=== PATIENT | female | born 1930 | race Caucasian/White ===

== ENCOUNTER 2016-12-13 08:17 | Emergency (ER) | payer MEDICARE, OTHER ==
--- NOTE | ~2016-12-13 | CR173 ---
[facility] A Service of [facility] & [facility] RADIOLOGY TEXT RESULTS PATIENT: GEORGETTE PROCTOR LOCATION: [facility] : 31 UNIT #: [id number] AGE: [address]: LOUIS MARCOS SEX: F ORDER DR: [id number] [facility] [address] [place], [place] [address] [id number] E MR#: [id number] Acc #: [id number] NAME: GEORGETTE PROCTOR : 1930 SEX: F STUDY DATE/TIME: 12/13/2016 9:41 UNIT: [facility] ROOM: STUDY DESCRIPTION: CR Knee 3 Views Rt Attending Physician: Louis Marcos Aprn Ordering Physician: Ed Ritchie Lopez M.D. Primary Care Physician: Rivera Labmert M.D. MEDICAL IMAGING REPORT This report is preliminary unless electronic signature is present EXAM 3 views of the right knee INDICATIONS Pain in both knees after a fall today. FINDINGS No acute fracture or subluxation of the right knee is identified. There is no suprapatellar views and patient does have degenerative changes involving the knee which are actually fairly mild in a tricompartmental distribution. There is dense atherosclerotic involvement of the superficial femoral and popliteal arteries. No aggressive osseous abnormalities are seen IMPRESSION No acute fracture or subluxation of the right knee is identified. Dictated by... Neha Patel M.D. THIS IS AN ELECTRONICALLY VERIFIED REPORT Neha Patel M.D. at 12/14/2016 1:24 PM AFF/rnr TD: 12/13/2016 22:21 JOB #: [id number] MEDICAL IMAGING REPORT COPY
--- NOTE | ~2016-12-13 | CR172 ---
[facility] A Service of [facility] & [facility] RADIOLOGY TEXT RESULTS PATIENT: GEORGETTE PROCTOR LOCATION: [facility] : 31 UNIT #: [id number] AGE: [address]: LOUIS MARCOS SEX: F ORDER DR: [id number] [facility] [address] [place], [place] [address] [id number] E MR#: [id number] Acc #: [id number] NAME: GEORGETTE PROCTOR : 1930 SEX: F STUDY DATE/TIME: 12/13/2016 9:38 UNIT: [facility] ROOM: STUDY DESCRIPTION: CR Knee 3 Views Lt Attending Physician: Louis Marcos Aprn Ordering Physician: Ed Ritchie Lopez M.D. Primary Care Physician: Rivera Lambert M.D. MEDICAL IMAGING REPORT This report is preliminary unless electronic signature is present EXAM 3 views left knee INDICATIONS Left knee pain after a fall today. FINDINGS No acute fracture or subluxation of the left knee is identified. Patient has really minimal degenerative change in the left knee, there is dense atherosclerotic involvement of the arterial vasculature. No suprapatellar effusion is identified. IMPRESSION No acute fracture or subluxation identified. Dictated by... Neha Patel M.D. THIS IS AN ELECTRONICALLY VERIFIED REPORT Neha Patel M.D. at 12/14/2016 1:30 PM AFF/rnr TD: 12/13/2016 22:44 JOB #: [id number] MEDICAL IMAGING REPORT COPY
--- NOTE | ~2016-12-13 | CT52 ---
[facility] A Service of [facility] & [facility] RADIOLOGY TEXT RESULTS PATIENT: GEORGETTE PROCTOR LOCATION: [facility] : 31 UNIT #: [id number] AGE: [address]: LOUIS MARCOS SEX: F ORDER DR: [id number] [facility] [address] [place], [place] [address] [id number] E MR#: [id number] Acc #: [id number] NAME: GEORGETTE PROCTOR : 1930 SEX: F STUDY DATE/TIME: 12/13/2016 9:21 UNIT: [place] ROOM: STUDY DESCRIPTION: CT Cervical Spine Wo Cont Attending Physician: Louis Marcos Aprn Ordering Physician: Ed Doctor [id number] [facility] Primary Care Physician: Rivera Lambert M.D. MEDICAL IMAGING REPORT This report is preliminary unless electronic signature is present EXAM Cervical spine CT without contrast HISTORY Neck pain, fell. Hip pain, fell today with 01/[address] exam was performed with one or more of the following radiation dose reduction techniques: automatic exposure control, adjustment of mA and/or kV according to patient size, and iterative reconstruction. COMMENT CT of the cervical spine performed in the axial plane without contrast followed by sagittal and coronal reconstructed images. 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 Non-emergent passive flexion/extension views could be obtained to assess for motion. There is about 2.0 mm of degenerative anterolisthesis of C4 on C5, also chronic. None of these is consistent with acute injury. There is endplate spondylosis most severe anteriorly at C5-6 and C6-7 with loss of intervertebral disc height at each of these levels. Arthritis is also prominent at the anterior atlantoaxial joint. No acute fracture or traumatic malalignment is suspected. No prevertebral fluid collection is suspected. Atherosclerotic vascular calcifications prominent at carotid bifurcations, best pursued with non-emergent carotid Doppler ultrasound. C2-3 bilateral facet degenerative change and bony foraminal narrowing but no apparent canal compromise. C3-4, severe bilateral facet degenerative change, bilateral bony foraminal narrowing. No bony canal compromise. [facility] A Service of [facility] & [facility] RADIOLOGY TEXT RESULTS PATIENT: GEORGETTE PROCTOR LOCATION: [facility] : 31 UNIT #: [id number] AGE: [address]: LOUIS MARCOS SEX: F ORDER DR: C4-5, facet degenerative change, left greater than right. Endplate spondylosis and uncovertebral osteophyte formation with bony foraminal narrowing, left greater than right. No bony canal stenosis. C5-6, endplate spondylosis. Mild bony foraminal narrowing. No bony canal compromise. C6-7, endplate spondylosis, uncovertebral osteophyte formation on the left with left-side bony foraminal narrowing. No bony canal compromise. C7-T1, asymmetric fairly severe left-sided bony foraminal narrowing with left-sided uncovertebral osteophyte formation and facet degenerative change. No bony canal compromise. IMPRESSION 1. There is redemonstration of cervical degenerative disease but there is nothing to suggest acute appearing cervical spine fracture or traumatic malalignment. Degenerative anterolisthesis of C3 on C4 and to a lesser extent C4 on C5 again identified. Multilevel bony foraminal narrowing noted. 2. Atherosclerotic vascular calcifications at the carotid bifurcations, best characterized with a non-emergent carotid Doppler ultrasound. STAT * RESULT Dictated by... Renetta Jones M.D. THIS IS AN ELECTRONICALLY VERIFIED REPORT Renetta Jones M.D. at 12/13/2016 4:03 PM [place]/jennifer TD: 12/13/2016 10:12 JOB #: [id number] MEDICAL IMAGING REPORT COPY
--- NOTE | ~2016-12-13 | CT71 ---
[facility] A Service of [facility] & [facility] RADIOLOGY TEXT RESULTS PATIENT: GEORGETTE PROCTOR LOCATION: [facility] : 31 UNIT #: [id number] AGE: [address]: LOUIS MARCOS SEX: F ORDER DR: [id number] [facility] [address] [place], [place] [address] [id number] E MR#: [id number] Acc #: [id number] NAME: GEORGETTE PROCTOR : 1930 SEX: F STUDY DATE/TIME: 12/13/2016 9:19 UNIT: [place] ROOM: STUDY DESCRIPTION: CT Head Wo Contrast Attending Physician: Louis Marcos Aprn Ordering Physician: North Lopez M.D. Primary Care Physician: Rivera Lambert M.D. MEDICAL IMAGING REPORT This report is preliminary unless electronic signature is present EXAM Head CT without HISTORY Fell, hip pain, fell today, irregular heartbeat, hypertension, diabetic, TIA. VRE history breast cancer. TECHNIQUE This CT exam was performed with one or more of the following radiation dose reduction techniques: automatic control, adjustment of mA and/or kV according to patient size, and iterative reconstruction. COMMENTS Routine noncontrast head CT is reviewed. Comparison 05/14/2015. There is no displaced calvarial fracture. The visualized mastoid air cells are clear. The patient has chronic sinus disease with mucosal thickening mucous retention cyst or polyps and some chronic osteitis changes in the maxillary sinuses. There is mucosal disease in the ethmoid air cells with some partial opacification on the left but there is no sinus air-fluid level. Vascular calcifications are quite prominent at the base of the brain. There is a large encephalomalacic area communicating with the ventricular system right parietooccipital lobe with evidence of extensive chronic insults to the brain. Also a large area of encephalomalacia in the right frontal lobe more superior. There is no evidence for acute intracranial hemorrhage or extraaxial fluid collection. Preexisting white matter disease noted. Old insult to the right basal ganglia and thalami. Again identified unchanged. Generalized atrophy. Patient has had cataract surgery bilaterally. IMPRESSION 1. No acute intracranial abnormality suspected but if there is clinical concern for acute CVA followup imaging is recommended. [facility] A Service of [facility] & [facility] RADIOLOGY TEXT RESULTS PATIENT: GEORGETTE PROCTOR LOCATION: [facility] : 31 UNIT #: [id number] AGE: [address]: LOUIS MARCOS SEX: F ORDER DR: 2. Atrophy. Extensive probable sequelae of small vessel disease and old areas of malacia with a large malacic cavity right parietooccipital lobe communicating with the ventricular system. Smaller area of encephalomalacia more superior right frontal lobe. These are unchanged and consistent with some chronic insult. Atherosclerotic vascular calcifications are quite prominent at the base of the brain. There is some paranasal sinus disease but there is no air-fluid level. Dictated by... Renetta Jones M.D. THIS IS AN ELECTRONICALLY VERIFIED REPORT Renetta Jones M.D. at 12/14/2016 6:19 AM [place]/gaby TD: 12/13/2016 22:14 JOB #: [id number] MEDICAL IMAGING REPORT COPY
--- NOTE | ~2016-12-13 | CT122 ---
[facility] A Service of [facility] & [facility] RADIOLOGY TEXT RESULTS PATIENT: GEORGETTE PROCTOR LOCATION: [facility] : 31 UNIT #: [id number] AGE: [address]: LOUIS MARCOS SEX: F ORDER DR: [id number] [facility] [address] [place], [place] [address] [id number] E MR#: [id number] Acc #: [id number] NAME: GEORGETTE PROCTOR : 1930 SEX: F STUDY DATE/TIME: 12/13/2016 11:45 UNIT: [place] ROOM: STUDY DESCRIPTION: CT Thoracic Spine Wo Cont Attending Physician: Louis Marcos Aprn Ordering Physician: Ed Doctor [id number] [facility] Primary Care Physician: Rivera Lambert M.D. MEDICAL IMAGING REPORT This report is preliminary unless electronic signature is present EXAM Thoracic spine CT INDICATION Patient fell today, mid-back pain. History of mastectomy. History of compression fractures. TECHNIQUE This CT exam was performed with one or more of the following radiation dose reduction techniques: automatic exposure control, adjustment of mA and/or kV according to patient size, and iterative reconstruction. COMMENT CT of the thoracic spine was performed without contrast in the axial plane followed by sagittal and coronal reconstructed images. There is comparison study from 05/14/2015. There is acute kyphosis centered at the level of T11 with severe chronic compression fractures at T10 and T12. The T12 compression fracture has been treated with a kyphoplasty. Moderate chronic compression fracture at T11. These findings are not appreciably changed from 05/14/2015. There is some bony canal compromise associated with it but not changed. There is however new abnormality at T8. There is a mild compression deformity with some indistinct sclerosis in the T8 vertebral body. I suspect this is all related to new compression fracture. Underlying lesion not excluded. There is minimal posterior cortical buckling but no bony canal stenosis is appreciated at the level of this more recent appearing T8 fracture. Clinical correlation and followup is recommended. Multilevel costovertebral joint arthritis present. There is consolidation in the right lower lobe posteriorly adjacent to a small to moderate pleural effusion. There is patchy airspace disease dependently on the left. Areas of parenchymal scarring in the apices. Considerable coronary artery calcifications. Calcifications of the thoracic aorta. Gallstones in the STS. [facility] A Service of [facility] RADIOLOGY TEXT RESULTS PATIENT: GEORGETTE PROCTOR LOCATION: [facility] : 31 UNIT #: [id number] AGE: [address]: LOUIS MARCOS SEX: F ORDER DR: gallbladder partly seen. Probably renovascular calcifications rather than renal calculi. IMPRESSION 1. Interval development of a mild anterior compression fracture at T8 on comparison to a scan from 05/14/2015. I suspect it is related to trauma and osteopenia in light of the history provided. Please correlate further clinically and followup is recommended to ensure healing and to exclude underlying lesion. Redemonstrated are old severe compression fractures at T10 and T12 and moderate chronic compression fracture at T11. The T12 fracture was previously treated with kyphoplasty cement. This is associated acute kyphosis and some bony canal stenosis but these are chronic findings, unchanged from 05/14/2015. 2. Partly seen is dependent right pleural effusion, small to moderate with airspace disease. Extensive vascular calcifications noted including the coronary arteries. STAT * RESULT Dictated by... Renetta Jones M.D. THIS IS AN ELECTRONICALLY VERIFIED REPORT Renetta Jones M.D. at 12/13/2016 4:03 PM Libert[place] TD: 12/13/2016 12:46 JOB #: [id number] MEDICAL IMAGING REPORT COPY
--- NOTE | ~2016-12-13 | CR243 ---
[facility] A Service of [facility] & [facility] RADIOLOGY TEXT RESULTS PATIENT: GEORGETTE PROCTOR LOCATION: [facility] : 31 UNIT #: [id number] AGE: [address]: LOUIS MARCOS SEX: F ORDER DR: [id number] [facility] [address] [place], [place] [address] [id number] E MR#: [id number] Acc #: [id number] NAME: GEORGETTE PROCTOR : 1930 SEX: F STUDY DATE/TIME: 12/13/2016 9:29 UNIT: [facility] ROOM: STUDY DESCRIPTION: CR Thoracic Spine 3 Views Attending Physician: Louis Marcos Aprn Ordering Physician: Ed Ritchie Lopez M.D. Primary Care Physician: Rivera Lambert M.D. MEDICAL IMAGING REPORT This report is preliminary unless electronic signature is present EXAM 4 views thoracic spine INDICATIONS Back pain after a fall today. FINDINGS This examination is nondiagnostic due to patient's osteoporosis and patient positioning. There is evidence of prior vertebroplasty at what is probably T12 and L2. Dense atherosclerotic involvement of the thoracic aorta is noted. IMPRESSION Nondiagnostic study due to patient's positioning. Osteopenia and advanced degenerative changes further evaluation with a CT is recommended. Dictated by... Neha Patel M.D. THIS IS AN ELECTRONICALLY VERIFIED REPORT Neha Patel M.D. at 12/14/2016 1:24 PM AFF/rnr TD: 12/13/2016 22:20 JOB #: [id number] MEDICAL IMAGING REPORT COPY
--- NOTE | ~2016-12-13 | CR229 ---
[facility] A Service of [facility] & [facility] RADIOLOGY TEXT RESULTS PATIENT: GEORGETTE PROCTOR LOCATION: [facility] : 31 UNIT #: [id number] AGE: [address]: LOUIS MARCOS SEX: F ORDER DR: [id number] [facility] [address] [place], [place] [address] [id number] E MR#: [id number] Acc #: [id number] NAME: GEORGETTE PROCTOR : 1930 SEX: F STUDY DATE/TIME: 12/13/2016 9:25 UNIT: [facility] ROOM: STUDY DESCRIPTION: CR Shoulder Min 2 View Lt Attending Physician: Louis Marcos Aprn Referring Physician: Quinton Sharpe M.D. Ordering Physician: North Lopez M.D. Primary Care Physician: Rivera Lambert M.D. MEDICAL IMAGING REPORT This report is preliminary unless electronic signature is present EXAM 3 views of left shoulder. DATE OF EXAM 12/13/2016 INDICATION Pain in the left shoulder, started today. Patient fell today. She is unable to rotate her arm externally. FINDINGS This examination is degraded by this patient's osteoporosis. However, no acute fracture or subluxation of the left shoulder is identified. The patient does appear to have some fractures of the left 5th and 6th ribs which I suspect are actually old, but are difficult to fully assess on these views of the shoulder. There are degenerative changes involving the left shoulder and left AC joint. No focal soft tissue abnormalities are seen. IMPRESSION Left 5th and 6th rib fractures favored to be old, certainly, however, dedicated rib series would be more sensitive for evaluation. No acute fracture or subluxation of the left shoulder, however, is seen. Dictated by... Neha Ptael M.D. THIS IS AN ELECTRONICALLY VERIFIED REPORT Neha Patel M.D. at 12/14/2016 1:24 PM AFF/jt TD: 12/13/2016 22:49 [facility] A Service of [facility] & [facility] RADIOLOGY TEXT RESULTS PATIENT: GEORGETTE PROCTOR LOCATION: [facility] #: [id number] : 31 UNIT #: [id number] AGE: [address]: LOUIS MARCOS SEX: F ORDER DR: JACQUELINE #: [id number] MEDICAL IMAGING REPORT COPY
[~2016-12-13 08:17] MED LIST: ACETAMINOPHEN PO; ACTONEL PO; ACTOS PO; AGGRENOX PO; ALENDRONATE SOD70 MG PO; AMARYL PO; AMBIEN CR PO; ANIMAL SHAPES1 EAC2 PO; ANTI-DIARRHEAL2 M1 PO; ANTIDIARRHEAL2 MG PO; ARNUITY ELLIP100 MCG IH; ARTHRITIS PAIN650 M3 PO; ASPIRIN PO; ASPIRIN81 M2 PO; ASPIRIN81 MG PO; ATORVASTATIN CA10 MG; ATORVASTATIN CA10 MG PO; CALCIMAR200 IU/ML; CARVEDILOL PO; CATAPRES0.1 MG PO; CENTRUM SILVER PO; CIPRO PO; CLOPIDOGREL75 MG; CLOPIDOGREL75 MG PO; COMBIVENT MININEB INH; COREG CR10 M1 PO; COREG PO; COREG6.25 M1 PO; COREG6.25 MG PO; COZAAR PO; COZAAR25 MG PO; CRANBERRY500 M1 PO; CRESTOR5 MG PO; DITROPAN XL PO; DITROPAN5 MG PO; DOCUSATE SODIU100 MG PO; DULCOLAX10 MG/SUPP PR; EFFEXOR XR75 MG PO; FERRO-TIME325 MG PO; FERROUS SULFATE1 TAB; FIORICET 50-321 EACH PO; FISH OIL 1,0001 CAP PO; FISH OIL 1,001000 M1 PO; FLOVENT DI50 MCG/DIS INH; FUROSEMIDE40 MG; FUROSEMIDE40 MG PO; FUROSEMIDE80 MG PO; GLUCOPHAGE XR500 MG PO; GLUCOPHAGE850 MG PO; GUAICON DMS LIQ10 M1 PO; IMDUR; IMDUR-ER30 M3 PO; IMDUR30 MG PO; IPRAT-ALBUT 0.5-3 ML IH; LANTUS100 U/M1 SQ; LANTUS100 U/ML; LANTUS100 U/ML SUBQ; LASIX PO; LASIX80 MG PO; LEVEMIR FL100 UNIT/1 SUBQ; LOSARTAN POTASS50 MG; LOSARTAN POTASS50 MG PO; LOW DOSE ASPIRI81 M1 PO; MACROBID100 MG PO; MAG-OXIDE400 MG PO; METFORMIN HCL500 M1; MILK OF MAGNESIA PO; MIRALAX17 GM PO; MULTI-VITAMIN1 EAC1 PO; NIFEREX-150 CAP1 CAP PO; NITROGLYGERIN0.4 MG SL; NITROSTAT0.4 MG SL; NORCO 5/325 TAB1 TAB PO; NOVOLOG100 U/M1; NOVOLOG100 U/ML; OMEGA 3-6-9 11200 M1 PO; OMEPRAZOLE20 M1 PO; OMNICEF300 MG PO; OYSTER CALCIUM500 MG PO; PLAVIX PO; POTASSIUM CHLO10 MEQ PO; PRILOSEC40 MG PO; SERTRALINE HCL50 MG; TOUJEO SOL300 UNIT/1 SUBQ; TOVIAZ4 MG; TOVIAZ4 MG PO; TRADJENTA5 MG PO; TUSSIN100 MG/51 PO; TYLENOL #3 PO; TYLENOL325 M1 PO; VENLAFAXINE HCL25 MG PO; VOLTAREN75 MG PO; VYTORIN PO; ZOLOFT PO; [UNRECOGNIZED DRUG - OTHER] MM
== END 2016-12-13 15:30 | disposition home or self-care (01) ==
LOC: CED 08:17
DX: S22.069A Unspecified fracture of T7-T8 vertebra, initial encounter for closed fracture (principal); M19.90 Unspecified osteoarthritis, unspecified site; I10 Essential (primary) hypertension; E11.9 Type 2 diabetes mellitus without complications; Z86.73 Personal history of transient ischemic attack (TIA), and cerebral infarction without residual deficits; Z90.710 Acquired absence of both cervix and uterus; Z90.09 Acquired absence of other part of head and neck; Z98.890 Other specified postprocedural states; W19.XXXA Unspecified fall, initial encounter; Y92.830 Public park as the place of occurrence of the external cause
CPT/HCPCS: 70450; 72072; 72125; 72128; 73030; 73562; 82947; 99284

== ENCOUNTER 2017-03-23 20:55 | Emergency (ER) | payer MEDICARE, OTHER ==
--- NOTE | ~2017-03-23 | CR72 ---
[facility] A Service [facility] RADIOLOGY TEXT RESULTS PATIENT: GEORGETTE PROCTOR LOCATION: [facility] : 31 UNIT #: [id number] AGE: [address]: Tigist Castro MD SEX: F ORDER DR: [id number] [facility] [address] [place], [place] [address] [id number] E MR#: [id number] Acc #: [id number] NAME: GEORGETTE PROCTOR : 1930 SEX: F STUDY DATE/TIME: 03/23/2017 21:44 UNIT: [facility] ROOM: STUDY DESCRIPTION: CR Chest Single View Portable Attending Physician: Tigist Castro M.D. Ordering Physician: Tigist Castro M.D. Primary Care Physician: Rivera Lambert M.D. MEDICAL IMAGING REPORT This report is preliminary unless electronic signature is present EXAM Frontal chest 03/23/2017 INDICATIONS 86-year-old female with shortness of air, lethargy, hypotension, altered mental status today. History of right-sided breast cancer, hypertension, diabetes. TECHNIQUE Frontal chest compared with 06/01/2016 FINDINGS Kyphoplasty/vertebroplasty changes are present in the thoracolumbar spine. Advanced degenerative change of the right shoulder. Cardiac silhouette borderline in size and stable. Lung volumes are low. Vascularity is within normal limits. Left lung appears clear. There is a chronic right-sided effusion with partially loculated pleural fluid or pleural thickening tracking superolaterally. Postop changes of axillary dissection on the right. No pneumothorax. Chronic rib fractures. There is some probable atelectasis and scarring in the right lung base. IMPRESSION 1. Borderline cardiac size without evidence of volume overload. 2. Chronic right-sided effusion with associated pleural thickening. 3. There is some chronic atelectasis and scarring in the mid and lower lung zone on the right. Left lung is clear. 4. Chronic rib fractures and degenerative change of the right shoulder. Dictated by... Jaime Green M.D. [facility] A Service [facility] RADIOLOGY TEXT RESULTS PATIENT: GEORGETTE PROCTOR [facility] #[facility] [id number] : 31 UNIT #: [id number] AGE: [address]: Tigist Castro MD SEX: F ORDER DR: THIS IS AN ELECTRONICALLY VERIFIED REPORT Jaime Green M.D. at 03/24/2017 2:35 PM Ivette TD: 03/24/2017 09:23 JOB #: [id number] MEDICAL IMAGING REPORT Page 1 of 1 COPY
--- NOTE | ~2017-03-23 | EKG ---
PATIENT: GEORGETTE PROCTOR UNIT #: [id number] Ventricular Rate: 105 BPM Atrial Rate: 416 BPM QRS Duration: 78 ms Q-T Interval: 282 ms QTC Calculation(Bezet): 372 ms Calculated R [place]: -36 degrees Calculated T [place]: 131 degrees Diagnosis Line: Atrial fibrillation with rapid ventricular Diagnosis Line: response Diagnosis Line: Left axis deviation Diagnosis Line: Low voltage QRS Diagnosis Line: Poor R wave progression questionable lead position Diagnosis Line: or body habitus Diagnosis Line: Nonspecific ST and T wave abnormality Diagnosis Line: Abnormal ECG Diagnosis Line: When compared with ECG of 03-JUN-2016 05:56, Diagnosis Line: Vent. rate has increased BY 36 BPM Diagnosis Line: Nonspecific T wave abnormality, improved in Diagnosis Line: Inferior leads Diagnosis Line: Confirmed by NAPOLEON BELTRÁN MD ([id number]) on Diagnosis Line: 03/24/2017 9:14:43 PM INTERPRETING MD: CAS
[2017-03-23 22:22] LABS: URINE APPEARANCE TURBID; URINE BILIRUBIN NEG (NEG); URINE BLOOD 2+ (NEG); URINE COLOR YELLOW; URINE GLUCOSE NEG (NEG); URINE KETONE NEG (NEG); URINE LEUKOCYTE ESTERASE 3+ (NEG); URINE NITRATE NEG (NEG); URINE PH 7.5 (5-8); URINE SPECIFIC GRAVITY 1.011 (1.003-1.035); URINE UROBILINOGEN 0.2 MG/DL (NEG)
[2017-03-23 22:24] LABS: CULTURE INDICATED? YES; URINE BACTERIA AUWI 4+ (NEGATIVE); URINE SQUAMOUS EPITHELIAL CELL NONE SEEN /[HPF]; UWBCS1 AUWI 100-200 (0-5)
[2017-03-23 22:27] LABS: URINE PROTEIN 1+ (NEG)
[2017-03-23 22:39] LABS: URINE SOURCE CATH
== END 2017-03-24 | disposition expired ==
LOC: CED 20:55
PROVIDERS: Emergency Medicine
DX: A41.9 Sepsis, unspecified organism (principal); R65.20 Severe sepsis without septic shock; J96.90 Respiratory failure, unspecified, unspecified whether with hypoxia or hypercapnia; I48.91 Unspecified atrial fibrillation; E11.9 Type 2 diabetes mellitus without complications; Z79.82 Long term (current) use of aspirin; Z79.899 Other long term (current) drug therapy; Z79.4 Long term (current) use of insulin
CPT/HCPCS: 36415; 51702; 71010; 81003; 87086; 87088; 87186; 93005; 96360; 99285